=== PATIENT | male | born 1935 | race Caucasian/White ===

== ENCOUNTER 2017-02-18 07:37 | Day surgery (SDC) | payer OTHER ==
--- NOTE | 2017-02-15 09:47 | MH ---
cc: AMENA BIANCHI DATE OF ADMISSION: 02/18/2017 : 39 CHIEF COMPLAINT: The patient is coming for CT-guided lung biopsy of the left lung. HISTORY OF PRESENT ILLNESS: Mr. Lu is a 81-year-old male with history of coronary artery disease status post CABG, hyperlipidemia, history of peripheral artery disease. The patient had a chest x-ray done, which was abnormal. He was sent for CT scan of the chest done at [facility] (Formerly [facility]) on January 12, which shows that he has a 3 cm mass in the left upper lobe suspicious for malignancy. He has a pleural density and pleural thickening in the right apex. No significant lymphadenopathy. He has had no weight loss. No fever or chills. No hemoptysis. No cough or sputum production. PAST MEDICAL HISTORY: 1. COPD. 2. Hyperlipidemia. 3. History of coronary artery disease status post CABG. 4. History of peripheral artery disease. MEDICATIONS: He takes: 1. Lipitor 40 milligrams. 2. Aspirin 81 milligrams. 3. Tramadol as needed. ALLERGIES: NO KNOWN DRUG ALLERGIES. SOCIAL HISTORY: He has 60-year history of smoking one pack a day and continues to smoke fifteen to twenty cigarettes a day. Drinks occasionally. 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 FAMILY HISTORY: for a second time for twenty-six year. He has two children. He has three brothers and two sisters. His mother with cancer. His father of complications of diabetes and heart problems. REVIEW OF SYSTEMS: He denies any weight loss or fatigue. No fever or chills. No chest pain or hemoptysis. PHYSICAL EXAMINATION: GENERAL: An elderly male not in any acute distress. VITAL SIGNS: His blood pressure is 122/72, heart rate 72, respirations 16, oxygen saturation 96%. HEAD, EYES, EARS, NOSE, THROAT: Pupils are equal and reactive to light. Oral mucosa and nasal mucosa are normal. NECK: The neck is supple. JVP not raised. CHEST: Air entry equal bilaterally. No rhonchi. CARDIOVASCULAR: S1-S2 normal. ABDOMEN: Abdomen benign. EXTREMITIES: No edema. IMPRESSION: 1. A 3 cm left upper lobe mass concerning for malignancy. No significant lymphadenopathy. 2. COPD. 3. Coronary artery disease status post CABG. 4. Peripheral artery disease. 5. Nicotine use. PLAN: I discussed with the patient he will need CT-guided lung biopsy. The mass is not amenable with bronchoscopy. I explained to him the procedure and the complications including the complication of anesthesia, pneumothorax requiring chest tube, bleeding complications, injury to the blood vessels or lungs, nerves, arrhythmia, and the patient understands and wants to proceed with it. I will check his CBC and PT and PTT. I will also check his pulmonary function studies. I advised him to quit smoking. Follow up in two weeks. MD JIA Roland/HIGINIO /5:57 PM /9:42 AM MTDGlen
[2017-02-18] VITALS (8 sets, daily range): BP systolic 95–141; BP diastolic 57–84; PULSE 54–71; RESP 20; TEMP 97.6–97.9; O2SAT 92–95
[~2017-02-18] VITALS: Ht 177.8 cm; Wt 59.1 kg
[~2017-02-18 07:37] MED LIST: ASPI81 PO; METO25 PO; SIMV40 PO; TRAM50 PO
[2017-02-18] MEDS ORDERED: IODIXANOL 320 MG/ML 10 ML VIAL (for Rad CT) OTHER ONE (07:38)
[2017-02-18] MEDS ORDERED: ASPI81CH6 CHEW (07:56)
[2017-02-18] MEDS ORDERED: ATOR40TA16 PO (07:57)
[2017-02-18 08:17] LABS: AUTOMATED NEUTROPHIL # 4.2 TH/MM3 (1.8-7.7); BASOPHIL # 0.1 TH/MM3 (0-0.2); EOSINOPHIL # 0.3 TH/MM3 (0-0.4); EOSINOPHIL % 3.9 % (0.0-4.0); HEMATOCRIT 40.6 % (39.0-51.0); HEMO FLAGS DIFF FINAL; LYMPH % 36.5 % (9.0-44.0); MEAN CORPUSCULAR HEMOGLOBIN 31.1 PG (27.0-34.0); MEAN CORPUSCULAR HGB CONC 34.2 % (32.0-36.0); MONO % 7.6 % (0.0-8.0); PLATELET COUNT 213 TH/MM3 (150-450); RED BLOOD COUNT 4.46 MIL/MM3 (4.50-5.90); RED CELL DISTRIBUTION WIDTH 14.2 % (11.6-17.2); WHITE BLOOD COUNT 8.3 TH/MM3 (4.0-11.0)
[2017-02-18 08:27] LABS: APTT (PATIENT) 26.7 SEC (24.3-30.1); PROTHROMBIN TIME - PATIENT 10.6 SEC (9.8-11.6)
[2017-02-18] MEDS ORDERED: SODIUM CHLOR 0.9% 1000 ML IV SCH (08:30)
[2017-02-18] MEDS ORDERED: LIDOCAINE 1%/EPINEPHrine 1:100,000 SOLN 20 ML VIAL ONE (09:27)
[2017-02-18] MEDS ORDERED: MIDAZOLAM HCL 2 MG/2 ML VIAL ONE (09:37)
[2017-02-18] MEDS ORDERED: oxyCODONE/ACETAMINOPHEN 5 MG/325 MG TAB PO PRN (10:30)
--- NOTE | 2017-02-18 10:34 | PD.RAD ---
Post CT Procedure Prog Note Pre Procedure Diagnosis: (1) Mass of left lung Post Procedure Diagnosis: (1) Mass of left lung Procedure Date: Feb 18, 2017 Supervising Radiologist: Christiano Glass Anesthesia: Local, Analgesia, Conscious Sedation Plan of Activity Patient to Unit: ROPU Patient Condition: Good See PACS Report for procedural detail/treatment Biopsy Imaging Guidance: CT Side: Left Biopsy Procedure: Lung Specimen: Core Biopsy (x 2) Findings: 2 cores. Cytotech eval of first core deemed adequate. Second sample obtained and placed in formalin Christiano Glass MD Feb 18, 2017 10:34
--- NOTE | 2017-02-18 12:20 | RADRPT ---
EXAM DATE/TIME: 02/18/2017 11:57 [facility] COMPARISON: No previous studies available for comparison. INDICATIONS : Post left lung biopsy. Evaluate pneumothorax. MEDICAL HISTORY : Chronic obstructive pulmonary disease. Hypercholesterolemia. Hyperlipidemia. Skin cancer, ear. SURGICAL HISTORY : CABG. Appendectomy. ENCOUNTER: Subsequent ACUITY: 1 day PAIN SCORE: 0/10 LOCATION: Left chest FINDINGS: A single frontal expiratory view of the chest was performed. The lungs are symmetrically aerated and clear. Tiny left apical of pneumothorax. Mediastinal structures are in the midline. Status post me serenity sternotomy. The cardio-mediastinal contours and bronchopulmonary markings are unremarkable for an expiratory exam . Osseous structures are intact. CONCLUSION: Tiny left apical pneumothorax. Status post median sternotomy. Jose Luis Yo MD on February 18, 2017 at 12:16 Board Certified Radiologist. This report was verified electronically.
--- NOTE | 2017-02-18 14:04 | RADRPT ---
EXAM DATE/TIME: 02/18/2017 13:25 [facility] COMPARISON: CHEST EXPIRATION ONLY, February 18, 2017, 11:57. INDICATIONS : Post left lung biopsy. MEDICAL HISTORY : Chronic obstructive pulmonary disease. Hypercholesterolemia. Hyperlipidemia.Skin cancer, ear. SURGICAL HISTORY : CABG. Appendectomy. ENCOUNTER: Subsequent ACUITY: 1 day PAIN SCORE: 0/10 LOCATION: Left chest FINDINGS: Portable upright expiratory view of the chest demonstrates no pneumothorax following recent left lung biopsy. Otherwise, there has been no significant change. CONCLUSION: No pneumothorax is visualized. Eduin Jean MD on February 18, 2017 at 14:02 Board Certified Radiologist. This report was verified electronically.
--- NOTE | 2017-02-18 17:34 | RADRPT ---
EXAM DATE/TIME: 02/18/2017 09:51 [facility] COMPARISON: No previous studies available for comparison. INDICATIONS : Left lung mass. SEDATION TIME: 30 minutes BIOPSY SITE: Left lung. MEDICATION(S): 1.) 2 mg midazolam (Versed) IV 2.) 125 mcg fentanyl (Sublimaze) IV DEVICE(S): 1.) 18 gauge Remy blunt needle 2.) 20 gauge Temno core biopsy needle MEDICAL HISTORY : Chronic obstructive pulmonary disease. Cardiovascular disease. Peripheral vascular disease. SURGICAL HISTORY : Appendectomy. CABG ENCOUNTER: Initial ACUITY: 1 day PAIN SCORE: 0/10 LOCATION: Left chest A total of one core specimen(s) were obtained and sent to the laboratory for pathologic evaluation. PROCEDURE: 1. CT guided lung biopsy. Prior to the procedure informed consent was obtained. Any appropriate prior imaging studies were rev iewed. Using automated exposure control and adjustment of the mA and/or kV according to patient size, radiation dose was kept as low as reasonably achievable to obtain optimal diagnostic quality images. DICOM format image data is available electronically for review and comparison. The site was prepped in a sterile fashion. Full sterile technique was used, including cap, mask, liborio rile gloves and gown and a large sterile sheet. Hand hygiene and 2% chlorhexidine and/or betadine/al cohol prep was utilized per protocol for cutaneous antisepsis. The skin and subcutaneous tissues wer e infiltrated with local anesthetic solution. With CT guidance the previously identified target was localized. An 18 gauge Remy blunt needle was advanced to the lesion. A 20 gauge core was obtained and passed to the cytotech for evaluation. Samp le was deemed adequate for evaluation. A second biopsy was obtained and placed directly in formalin f or further laboratory evaluation. Adequate hemostasis was obtained with compression at the puncture site. Follow-up CT scan reveals no pneumothorax. Conscious sedation was performed with the prescribed dosages and duration as above in the presence of an independent trained radiology nurse to assist in the monitoring of the patient. EKG and oximetry remained stable throughout the procedure. The patient tolerated the procedure well and there were no complications. The patient was sent to Radiology Outpatient Unit in stable condition. CONCLUSION: Uncomplicated CT guided biopsy. Christiano Glass MD on February 18, 2017 at 17:31 Board Certified Radiologist. This report was verified electronically.
== END 2017-02-18 14:55 | disposition home or self-care (01) ==
LOC: HRAD 07:37 → HRIP 07:44 → HRAD 14:55
PROVIDERS: ATTEND Specialist
DX: R91.8 Other nonspecific abnormal finding of lung field (principal); J44.9 Chronic obstructive pulmonary disease, unspecified; I25.10 Atherosclerotic heart disease of native coronary artery without angina pectoris; E78.5 Hyperlipidemia, unspecified; I73.9 Peripheral vascular disease, unspecified; F17.200 Nicotine dependence, unspecified, uncomplicated; Z79.82 Long term (current) use of aspirin; Z95.1 Presence of aortocoronary bypass graft
CPT/HCPCS: 32405; 71010; 77012; 85025; 85610; 85730; 88305; 88333; 88360; J2250; J3010; J7030; Q9967

== ENCOUNTER 2017-04-08 05:17 | Inpatient (IN) | payer OTHER, MEDICARE ==
[~2017-04-08] VITALS: Ht 177.8 cm; Wt 58.5 kg
[~2017-04-08 05:17] MED LIST changes: -ASPI81 PO; +ASPI81CH6 CHEW; +ATOR40TA16 PO; -METO25 PO; -SIMV40 PO; -TRAM50 PO
[2017-04-08] MEDS ORDERED: LACTATED RINGER'S 1000 ML IV PRN (06:00)
[2017-04-08] MEDS ORDERED: POVIDONE IODINE 5% (ANTISEPSIS KIT) 4 APPLICATIONS EACH NARE PRN (06:00)
[2017-04-08] MEDS ORDERED: CHLORHEXIDINE GLUCONATE 2 % 1 PACK (2 CLOTHS) TOPICAL PRN (06:00)
[2017-04-08] MEDS ORDERED: SODIUM CHLORID 0.9% 500 ML IV PRN (06:00)
[2017-04-08] MEDS ORDERED: METOPROLOL TARTRATE 25 MG TAB PO PRN (06:00)
[2017-04-08] MEDS ORDERED: ACETAMINOPHEN 1000 MG/100 ML 100 ML IV ONE (06:08)
[2017-04-08] MEDS ORDERED: HYDROmorphone HCL PF 2 MG/ML VIAL ONE (06:08)
[2017-04-08] MEDS ORDERED: BUPIVACAINE HCL PF 0.5% 30 ML VIAL ONE ×3 (07:05→07:10)
[2017-04-08] MEDS ORDERED: ceFAZolin 2 GM PREMIX 50 ML ONE (07:05)
[2017-04-08] MEDS ORDERED: BUPIVACAINE LIPOSO PF 1.3% INJ 20 ML, DEXAMETHASONE INJ 4 MG, MORPHINE INJ 8 MG in SODI... IRRIGATION SCH (08:45)
--- NOTE | 2017-04-08 09:19 | PD.CAR.PN ---
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
--- NOTE | 2017-04-08 09:23 | HHI.FF ---
Face to Face Verification Diagnosis: (1) Hx of CABG (2) COPD (chronic obstructive pulmonary disease) (3) CAD (coronary artery disease) (4) left VATS lobectomy (5) Mass of left lung Home Health Nursing Order: Medication education-adverse effect Wound care and dressing changes Nursing assessment with vital signs Instructions: Thoracic Surgery patients Mandatory frequency Assess and evaluation, 2-3 x a week for one week Initial visit 1. Review post chest surgery instructions chest precautions, Activity, Elastic hose, Incision care, Driving, Incentive spirometry, Smoking, [place] , Work and other) 2. Need Betadine to paint incision 3. Medication reconciliation 4. Importance of follow up care/ check on appointments 5. Make calendar record temperature daily 6. When to call Home nurse, review instructions, phone list 7. Incentive Spirometry, demonstration Visit 1- Begin discharge instruction for patient family and/ or caregiver using teach back method- 1. Signs and symptoms of infection 2. Disease characteristics 3. Medicines and side effects 4. Foods and nutrition/ appetite 5. Infection control/ hand washing/ hygiene Visit 2- Continue teaching 1. Discharge instructions- include additional information on smoking cessation , Visit 3- Continue teaching- 1. Cough and deep breathing, incision monitoring. Incentive spirometry Q1 hr x 10, while awake, also use acapella device hourly whole awake chest wall Precautions: NO pushing or pulling, ( pt must use chest pillow to support chest with all activities and with coughing Daily incision care: ok to shower daily ( 48hrs after chest tube removed ) , no tub bath. Wash all incisions with liquid dial soap, clean wash cloth to each site, rinse and pat dry. Observe for any signs of infection, such as drainage which is dark yellow, sims, green or foul smelling. Immediately report to the surgeon any drainage from the chest incision, or legs, and for any abnormal drainage from the chest tube sites. Notify surgeon if any temp > 101.5 degrees F. When specialty dressing removed/ or if you do not have one, continue to shower daily as above, then rinse and pat incision dry and paint with betadine daily x 5 days. Allow steri strips to fall off if you have any. Avoid lotions, creams, salves, oils, etc. for the first month For Dr. Funes patients , please obtain PA & Lat CXR in 2 weeks, results to Dr. 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 Madison & Dr. Funes), After Hours / Nights (5pm -8am) Weekends and Holidays Please call [facility] Cardiac Intermediate Care Unit (CIC) Charge Nurse I have seen patient Martin Lu on 04/08/17. My clinical findings support the need for the requested home health care services because: Patient has SOB I certify that my clinical findings support that this patient is homebound because: Post-op weakness Jerilyn Smith Apr 08, 2017 09:22
[2017-04-08] MEDS ORDERED: NALOXONE HCL 0.4 MG/ML AMP IV PUSH PRN (10:45)
[2017-04-08] MEDS ORDERED: POTASSIUM CHLOR 20 MEQ PREMIX 100 ML IV PRN (10:45)
[2017-04-08] MEDS ORDERED: ONDANSETRON HCL 4 MG/2 ML VIAL IV PUSH PRN (10:45)
[2017-04-08] MEDS ORDERED: MAGNESIUM HYDROXIDE SUSP 30 ML CUP PO PRN (10:45)
[2017-04-08] MEDS ORDERED: ACETAMINOPHEN 325 MG TAB PO PRN (10:45)
[2017-04-08] MEDS ORDERED: SODIUM CHLORIDE 0.9% FLUSH 10 ML FLUSH IV FLUSH PRN (10:45)
[2017-04-08] MEDS ORDERED: RESP: ALBUTEROL 2.5 MG/3 ML NEB (PRN) NEB (10:45)
[2017-04-08] MEDS ORDERED: Post-op Orders (for Pharmacy) OTHER ONE (10:45)
[2017-04-08] MEDS ORDERED: DO NOT ADM ANY ANTICOAGULANT DRUGS PRN (11:09)
--- NOTE | 2017-04-08 11:10 | PD.OP ---
cc: Maurilio Lopez MD; Blanca Funes MD Operative Report Date of Surgery: Apr 08, 2017 Preoperative Diagnosis: (1) COPD (chronic obstructive pulmonary disease) (2) Lung cancer Postoperative Diagnosis: same Procedure: Left thoracoscopic assisted excisional biopsy of left upper lobe tumor Lysis of adhesions Anesthesia: Dr. Han Surgeon: Blanca Funes Transfer Worker(s): JUSTIN Walsh Operation and Findings: After adequate general anesthesia the patient was placed in the right lateral decubitus position and the left chest was prepped and draped in usual manner. A small lateral thoracotomy incision was performed and electrocautery was used to obtain hemostasis and carry the dissection down through the latissimus dorsi. The serratus anterior was retracted anteriorly and the 5th intercostal space was entered under direct vision and selective single lung ventilation. The 5th rib was shingled posteriorly. Exploration of the left hemithorax was significant for dense adhesions from the patient's prior CABG involving the left hemithorax and the major fissure. A small anterior port incision was made at the ~6th intercostal space and a camera was introduced to aid visualization and exposure. After mobilizing the left upper lobe, a large mass was encountered grossly invading the chest wall just posterior to the apex. Clips were used to tejas the area of concern. This nodule was excised using several Endo-TOM endoscopic staple loads. The mass was submitted to pathology for permanent section. A 32 Icelandic chest tube was then placed through the port incision anteriorly and this was secured with 0 silk suture. Exparel was used as an intercostal block for postop analgesia. . The lung was ventilated and the staple line was treated with Evicel to minimize air leaks. . The wound was closed in layers approximately in the ribs initially with a 2. Vicryl figure-of- eight suture. The latissimus dorsi was reapproximated using a running 0 Vicryl suture. The subcutaneous tissues approximated running 2-0 Vicryl suture and the skin was approximated using running 4-0 Monocryl subcuticular stitch. All sponges history counts were correct at the close the procedure and the patient was transferred to the PACU for recovery purposes. Blanca Funes MD Apr 08, 2017 11:10
[2017-04-08] MEDS ORDERED: MIDAZOLAM HCL 2 MG/2 ML VIAL ONE (11:14)
--- NOTE | 2017-04-08 11:49 | RADRPT ---
EXAM DATE/TIME: 04/08/2017 11:27 [facility] COMPARISON: CHEST EXPIRATION ONLY, February 18, 2017, 13:25. INDICATIONS : Post thoracotomy. MEDICAL HISTORY : Chronic obstructive pulmonary disease. Cardiovascular disease. Peripheral vascular disease. SURGICAL HISTORY : Appendectomy. CABG. ENCOUNTER: Subsequent ACUITY: 1 day PAIN SCORE: 0/10 LOCATION: Bilateral chest FINDINGS: 2 AP views of the chest. Median sternotomy wires in place. Left-sided chest tube in place. Patchy [place] in the left upper lung zone. Small amount of gas is seen in the soft tissues of the left chest. There is a left apical pneumothorax measuring a maximum of 4 cm in superior-inferior dimension. Right lung is clear. No evidence of pleural effusion. CONCLUSION: Post surgical findings left upper lung. Left apical pneumothorax is seen. Left sided chest tubes in p lace at the left apex. Brayan Leonardo MD on April 08, 2017 at 11:44 Board Certified Radiologist. This report was verified electronically.
[2017-04-08] MEDS ORDERED: ROCURONIUM INJ 50 MG/5 ML SYRINGE IV PUSH ONE (12:00)
[2017-04-08] MEDS ORDERED: ePHEDrine/NS 25 MG/5 ML SYRINGE IV ONE (12:00)
[2017-04-08] MEDS ORDERED: PROPOFOL 200 MG/20 ML AMP IV ONE (12:00)
[2017-04-08] MEDS ORDERED: PHENYLEPH/NS 1000 MCG/10 ML SYR IV ONE (12:00)
[2017-04-08] MEDS ORDERED: NEOSTIGMINE 5 MG/5 ML SYRINGE IV PUSH ONE (12:00)
[2017-04-08] MEDS ORDERED: ONDANSETRON HCL 4 MG/2 ML VIAL IV ONE (12:00)
[2017-04-08] MEDS ORDERED: GLYCOPYRROLATE 1 MG/5 ML SYRINGE IV PUSH ONE (12:00)
[2017-04-08] MEDS ORDERED: DEXAMETHASONE SOD PHOS 4 MG/ML VIAL IV ONE (12:00)
[2017-04-08] MEDS ORDERED: LIDOCAINE HCL 1% PF 5 ML SYRINGE OTHER ONE (12:00)
[2017-04-08] MEDS: MORPHINE SULFATE 30 MG/30 ML PCA IV SCH (12:23)
[2017-04-08 20:00] VITALS: BP 111/60; PULSE 76; RESP 14; TEMP 98.1; O2SAT 96
[2017-04-08] MEDS: ATORVASTATIN 40 MG TAB PO SCH (20:43)
[2017-04-08] MEDS: PANTOPRAZOLE SOD 40 MG DELAYED RELEASE TAB PO SCH (20:43)
[2017-04-08] MEDS: SODIUM CHLORIDE 0.9% FLUSH 10 ML FLUSH IV FLUSH SCH (20:44)
[2017-04-08 21:00] VITALS: PULSE 68
[2017-04-08] MEDS ORDERED: DOCUSATE CALCIUM 240 MG CAP PO SCH (21:00)
[2017-04-08 22:00] VITALS: PULSE 58
[2017-04-08] MEDS: PCA - TOTAL MG MORPHINE DELIVERED PER SHIFT SCH (22:00)
[2017-04-08 23:00] VITALS: PULSE 64
[2017-04-09] VITALS (24 sets, daily range): BP systolic 93–127; BP diastolic 56–63; PULSE 58–93; RESP 14–20; TEMP 97.8–98.6; O2SAT 94–99
--- NOTE | 2017-04-09 05:32 | RADRPT ---
EXAM DATE/TIME: 04/09/2017 04:16 [facility] COMPARISON: CHEST SINGLE AP, April 08, 2017, 11:27. INDICATIONS : Evaluate for pneumothorax Post Thoracotomy MEDICAL HISTORY : Chronic obstructive pulmonary disease. Cardiovascular disease. Peripheral vascular disease. SURGICAL HISTORY : Appendectomy. CABG. ENCOUNTER: Subsequent ACUITY: 2 days PAIN SCORE: 7/10 LOCATION: Bilateral chest FINDINGS: The patient is status post sternotomy. There is a left-sided chest tube in place. Lung philipp are se en at the superior medial left lung. A pneumothorax is not seen. There is some patchy density in the left upper lung. The right lung is clear. The heart size is normal. There is subcutaneous emphysema seen at the left lateral chest and left neck. CONCLUSION: A pneumothorax is not seen. There is a left chest tube in place. There is postoperative change in the left upper lung. Eduin Back MD on April 09, 2017 at 5:28 Board Certified Radiologist. This report was verified electronically.
[2017-04-09] MEDS: PCA - TOTAL MG MORPHINE DELIVERED PER SHIFT SCH ×3 (06:00→22:00)
[2017-04-09 06:24] LABS: AUTOMATED NEUTROPHIL # 8.2 TH/MM3 (1.8-7.7); BASOPHIL % 0.2 % (0.0-2.0); HEMATOCRIT 30.6 % (39.0-51.0); HEMOGLOBIN 10.6 GM/DL (13.0-17.0); LYMPH % 12.5 % (9.0-44.0); LYMPHOCYTE # 1.3 TH/MM3 (1.0-4.8); MEAN CELL VOLUME 89.9 FL (80.0-100.0); MEAN CORPUSCULAR HEMOGLOBIN 31.1 PG (27.0-34.0); MEAN CORPUSCULAR HGB CONC 34.6 % (32.0-36.0); MEAN PLATELET VOLUME 7.1 FL (7.0-11.0); MONO % 8.2 % (0.0-8.0); MONOCYTE # 0.8 TH/MM3 (0-0.9); NEUT % 79.1 % (16.0-70.0); PLATELET COUNT 192 TH/MM3 (150-450); WHITE BLOOD COUNT 10.3 TH/MM3 (4.0-11.0)
[2017-04-09 06:31] LABS: BICARBONATE 26.6 MEQ/L (21.0-32.0); CALCIUM 8.2 MG/DL (8.5-10.1); CREATININE 1.23 MG/DL (0.60-1.30)
[2017-04-09] MEDS: SODIUM CHLORIDE 0.9% FLUSH 10 ML FLUSH IV FLUSH SCH ×2 (08:55→22:14)
[2017-04-09] MEDS: ASPIRIN 81 MG CHEW TAB CHEW SCH (08:55)
[2017-04-09] MEDS ORDERED: BISACODYL 10 MG SUPP RECTAL PRN (10:00)
[2017-04-09] MEDS ORDERED: SOD PHOSPHATE/SOD BIPHOSPHATE (ADULT) ENEMA 133ML PR PRN (10:00)
--- NOTE | 2017-04-09 10:03 | PD.CAR.PN ---
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 incision intact left posteo lateral chest wall / wll approximated HEAD: Normocephalic. EYES: No scleral icterus. No injection or drainage. NECK: Supple, trachea midline. No JVD or lymphadenopathy. CARDIOVASCULAR: Regular rate and rhythm without murmurs, gallops, or rubs. RESPIRATORY: Breath sounds equal bilaterally. No accessory muscle use. chest tube in place + air leak , drained 500cc/ 12 hrs GASTROINTESTINAL: Abdomen soft, non-tender, nondistended. MUSCULOSKELETAL: No cyanosis, or edema. BACK: Nontender without obvious deformity. No CVA tenderness. Vital Signs Date Time Temp Pulse Resp B/P (MAP) Pulse Ox O2 Delivery O2 Flow Rate FiO2 04/09/17 09:00 75 04/09/17 08:51 95 21 04/09/17 08:00 69 04/09/17 07:23 98.1 67 20 104/60 (75) 97 04/09/17 07:00 67 04/09/17 06:00 16 04/09/17 03:00 98.2 78 16 93/57 (69) 96 04/09/17 00:00 98.2 61 14 106/60 (75) 94 04/09/17 00:00 68 04/08/17 23:00 64 04/08/17 22:00 58 04/08/17 22:00 14 04/08/17 21:00 68 04/08/17 20:00 98.1 76 14 111/60 (77) 96 04/08/17 19:00 71 16 108/64 (79) 95 Room Air 04/08/17 18:00 68 16 106/59 (75) 95 Room Air 04/08/17 17:00 62 16 111/57 (75) 98 04/08/17 16:00 60 16 113/59 (77) 99 Nasal Cannula 2 04/08/17 15:00 62 16 107/57 (74) 97 Nasal Cannula 3 04/08/17 14:00 68 16 108/62 (77) 98 Nasal Cannula 3 04/08/17 13:30 64 16 102/59 (73) 98 Nasal Cannula 3 04/08/17 13:00 58 16 106/57 (73) 98 Nasal Cannula 3 04/08/17 12:30 60 16 111/57 (75) 99 Nasal Cannula 3 04/08/17 12:23 16 04/08/17 12:15 58 16 112/56 (74) 99 Nasal Cannula 3 04/08/17 12:00 97.4 60 16 112/58 (76) 99 Nasal Cannula 3 04/08/17 11:45 58 16 114/59 (77) 100 Nasal Cannula 3 04/08/17 11:30 56 16 116/57 (76) 100 Nasal Cannula 3 04/08/17 11:15 60 16 118/58 (78) 100 Nasal Cannula 3 04/08/17 11:09 95.7 66 16 127/63 (84) 99 Nasal Cannula 3 Labs: Laboratory Tests Test 04/09/17 04:26 White Blood Count 10.3 TH/MM3 (4.0-11.0) Red Blood Count 3.40 MIL/MM3 (4.50-5.90) Hemoglobin 10.6 GM/DL (13.0-17.0) Hematocrit 30.6 % (39.0-51.0) Mean Corpuscular Volume 89.9 FL (80.0-100.0) Mean Corpuscular Hemoglobin 31.1 PG (27.0-34.0) Mean Corpuscular Hemoglobin Concent 34.6 % (32.0-36.0) Red Cell Distribution Width 14.0 % (11.6-17.2) Platelet Count 192 TH/MM3 (150-450) Mean Platelet Volume 7.1 FL (7.0-11.0) Neutrophils (%) (Auto) 79.1 % (16.0-70.0) Lymphocytes (%) (Auto) 12.5 % (9.0-44.0) Monocytes (%) (Auto) 8.2 % (0.0-8.0) Eosinophils (%) (Auto) 0.0 % (0.0-4.0) Basophils (%) (Auto) 0.2 % (0.0-2.0) Neutrophils # (Auto) 8.2 TH/MM3 (1.8-7.7) Lymphocytes # (Auto) 1.3 TH/MM3 (1.0-4.8) Monocytes # (Auto) 0.8 TH/MM3 (0-0.9) Eosinophils # (Auto) 0.0 TH/MM3 (0-0.4) Basophils # (Auto) 0.0 TH/MM3 (0-0.2) CBC Comment DIFF FINAL Differential Comment Blood Urea Nitrogen 17 MG/DL (7-18) Creatinine 1.23 MG/DL (0.60-1.30) Random Glucose 131 MG/DL (74-106) Calcium Level 8.2 MG/DL (8.5-10.1) Sodium Level 138 MEQ/L (136-145) Potassium Level 4.4 MEQ/L (3.5-5.1) Chloride Level 104 MEQ/L (98-107) Carbon Dioxide Level 26.6 MEQ/L (21.0-32.0) Anion Gap 7 MEQ/L (5-15) Estimat Glomerular Filtration Rate 57 ML/MIN (>89) Result Diagram: 04/09/1742504/09/17425 Telemetry: NSR (1) COPD (chronic obstructive pulmonary disease) Plan: on nebs, IS ezpap acapella (2) CAD (coronary artery disease) Plan: on ASA, statin (3) Mass of left lung (4) left VATS lobectomy Plan: keep chest tube to wall suction (5) Lung cancer Plan: path pending (6) Hx of CABG Jerilyn Smith Apr 09, 2017 10:03
[2017-04-09] MEDS: DOCUSATE SODIUM 100 MG CAP PO SCH ×2 (10:18→22:15)
[2017-04-09] MEDS: POLYETHYLENE GLYCOL 17 GM PKG PO SCH (10:18)
[2017-04-09] MEDS: PANTOPRAZOLE SOD 40 MG DELAYED RELEASE TAB PO SCH (22:15)
[2017-04-09] MEDS: ATORVASTATIN 40 MG TAB PO SCH (22:15)
[2017-04-10] VITALS (24 sets, daily range): BP systolic 102–139; BP diastolic 57–70; PULSE 66–86; RESP 12–20; TEMP 97.4–99.9; O2SAT 94–97
--- NOTE | 2017-04-10 04:40 | RADRPT ---
EXAM DATE/TIME: 04/10/2017 03:49 [facility] COMPARISON: CHEST EXPIRATION ONLY, February 18, 2017, 13:25. CHEST SINGLE AP, April 08, 2017, 11:27. CHEST SI NGLE AP, April 09, 2017, 4:16. INDICATIONS : Shortness of breath, possible pneumothorax. MEDICAL HISTORY : Chronic obstructive pulmonary disease. Cardiovascular disease. Peripheral vascular disease. SURGICAL HISTORY : Appendectomy. CABG. ENCOUNTER: Subsequent ACUITY: 3 days PAIN SCORE: 3/10 LOCATION: Bilateral chest FINDINGS: There is a left chest tube. Lung philipp in the superior-medial left chest. There is pleural fluid ov er the left apex. There appears to be a mild pneumothorax on the left measuring up to 1.3 cm laterall y. There is suspected postoperative change throughout the left upper medial chest. The right lung is clear. CONCLUSION: Status post partial left pneumonectomy with lung philipp seen in the left upper lung. There is postop erative change in this region. There is a left chest tube and a suspected mild left pneumothorax. Eduin Back MD on April 10, 2017 at 4:32 Board Certified Radiologist. This report was verified electronically.
[2017-04-10 05:48] LABS: HEMATOCRIT 28.8 % (39.0-51.0); MEAN CELL VOLUME 89.5 FL (80.0-100.0); MEAN CORPUSCULAR HEMOGLOBIN 30.9 PG (27.0-34.0); MEAN CORPUSCULAR HGB CONC 34.5 % (32.0-36.0); MEAN PLATELET VOLUME 6.9 FL (7.0-11.0); PLATELET COUNT 178 TH/MM3 (150-450); RED BLOOD COUNT 3.22 MIL/MM3 (4.50-5.90); RED CELL DISTRIBUTION WIDTH 13.9 % (11.6-17.2); WHITE BLOOD COUNT 9.9 TH/MM3 (4.0-11.0)
[2017-04-10] MEDS: PCA - TOTAL MG MORPHINE DELIVERED PER SHIFT SCH ×3 (06:00→22:00)
[2017-04-10] MEDS: POLYETHYLENE GLYCOL 17 GM PKG PO SCH (09:03)
[2017-04-10] MEDS: DOCUSATE SODIUM 100 MG CAP PO SCH ×2 (09:03→21:00)
[2017-04-10] MEDS: ASPIRIN 81 MG CHEW TAB CHEW SCH (09:03)
[2017-04-10] MEDS: SODIUM CHLORIDE 0.9% FLUSH 10 ML FLUSH IV FLUSH SCH ×2 (09:04→21:00)
--- NOTE | 2017-04-10 10:42 | PD.CAR.PN ---
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 04/10/17 small air leak resting comfortably currently Objective: Vital Signs Date Time Temp Pulse Resp B/P (MAP) Pulse Ox O2 Delivery O2 Flow Rate FiO2 04/10/17 09:00 68 04/10/17 08:00 78 04/10/17 07:00 97.4 86 20 102/57 (72) 96 04/10/17 07:00 77 04/10/17 06:00 70 04/10/17 05:00 70 04/10/17 04:00 70 04/10/17 03:00 71 04/10/17 03:00 98.7 78 18 116/62 (80) 95 04/10/17 02:00 74 04/10/17 01:00 74 04/10/17 00:00 71 04/09/17 23:00 98.6 81 18 115/57 (76) 94 04/09/17 23:00 70 04/09/17 22:00 16 04/09/17 22:00 70 04/09/17 21:00 64 04/09/17 20:00 67 04/09/17 20:00 98.6 80 18 127/63 (84) 95 04/09/17 19:48 94 21 04/09/17 19:00 66 04/09/17 18:00 79 04/09/17 17:00 93 04/09/17 16:00 70 04/09/17 15:30 97.9 70 20 103/59 (74) 99 04/09/17 15:00 75 04/09/17 14:00 58 04/09/17 14:00 16 04/09/17 13:00 60 04/09/17 12:00 68 04/09/17 11:42 97.8 76 20 104/56 (72) 97 04/09/17 11:00 67 Labs: Laboratory Tests Test 04/10/17 05:18 White Blood Count 9.9 TH/MM3 (4.0-11.0) Red Blood Count 3.22 MIL/MM3 (4.50-5.90) Hemoglobin 10.0 GM/DL (13.0-17.0) Hematocrit 28.8 % (39.0-51.0) Mean Corpuscular Volume 89.5 FL (80.0-100.0) Mean Corpuscular Hemoglobin 30.9 PG (27.0-34.0) Mean Corpuscular Hemoglobin Concent 34.5 % (32.0-36.0) Red Cell Distribution Width 13.9 % (11.6-17.2) Platelet Count 178 TH/MM3 (150-450) Mean Platelet Volume 6.9 FL (7.0-11.0) Result Diagram: 04/10/17 0518 04/09/17 0426 Imaging: Last Impressions Chest X-Ray 04/10/17 0600 Signed Impressions: Service Date/Time: Monday, April 10, 2017 03:49 - CONCLUSION: Status post partial left pneumonectomy with lung philipp seen in the left upper lung. There is postoperative change in this region. There is a left chest tube and a suspected mild left pneumothorax. Eduin Back MD Cardiovascular: RRR Telemetry: NSR Pulmonary: CTA GI/: NABS, NT Incision: dry and intact CT: 180ml/12hrs small air leak Plan: continue chest tube to suction CXR in AM Encourage ambulation, up to chair Encourage PO intake PATH reviewed - path stage T3, N0, M0 - stage 2b Will consult oncology for consideration of adjuvant tx in the near future (1) COPD (chronic obstructive pulmonary disease) Plan: on nebs, IS ezpap acapella (2) CAD (coronary artery disease) Plan: on ASA, statin (3) Mass of left lung (4) left VATS lobectomy Plan: keep chest tube to wall suction (5) Lung cancer Plan: path pending (6) Hx of CABG Blanca Funes MD Apr 10, 2017 10:42
[2017-04-10] MEDS: PANTOPRAZOLE SOD 40 MG DELAYED RELEASE TAB PO SCH (21:00)
[2017-04-10] MEDS: ATORVASTATIN 40 MG TAB PO SCH (21:00)
[2017-04-11] VITALS (24 sets, daily range): BP systolic 99–117; BP diastolic 59–71; PULSE 62–87; RESP 12–20; TEMP 98–99.1; O2SAT 95–97
--- NOTE | 2017-04-11 02:50 | RADRPT ---
EXAM DATE/TIME: 04/11/2017 02:19 [facility] COMPARISON: CHEST SINGLE AP, April 10, 2017, 3:49. INDICATIONS : Shortness of breath, possible pneumothorax. MEDICAL HISTORY : Chronic obstructive pulmonary disease. Cardiovascular disease. Peripheral vascular disease. SURGICAL HISTORY : Appendectomy. CABG. ENCOUNTER: Subsequent ACUITY: 4 - 6 days PAIN SCORE: 3/10 LOCATION: Bilateral chest FINDINGS: There is a left-sided chest tube. A pneumothorax is not seen. There is subcutaneous air seen at the l ower lateral left chest. There are lung philipp at the superior medial left upper lung. There some pl eural thickening over the lung left apex. There is increased density of the left upper lung. The righ t lung is clear. The patient is status post sternotomy. Heart size is normal. The aorta is calcified. CONCLUSION: Postoperative change the left upper lung. No pneumothorax is seen. Eduin Back MD on April 11, 2017 at 2:47 Board Certified Radiologist. This report was verified electronically.
[2017-04-11] MEDS: PCA - TOTAL MG MORPHINE DELIVERED PER SHIFT SCH ×3 (06:00→21:56)
[2017-04-11] MEDS: MORPHINE SULFATE 30 MG/30 ML PCA IV SCH (08:00)
[2017-04-11] MEDS: POLYETHYLENE GLYCOL 17 GM PKG PO SCH (09:00)
[2017-04-11] MEDS: ASPIRIN 81 MG CHEW TAB CHEW SCH (09:47)
[2017-04-11] MEDS: SODIUM CHLORIDE 0.9% FLUSH 10 ML FLUSH IV FLUSH SCH ×2 (09:47→20:54)
[2017-04-11] MEDS: DOCUSATE SODIUM 100 MG CAP PO SCH ×2 (09:47→20:54)
--- NOTE | 2017-04-11 09:53 | PD.CAR.PN ---
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 GI motility meds added 04/10/17 small air leak resting comfortably currently 04/11/17 c/o incisional pain small air leak Objective: Vital Signs Date Time Temp Pulse Resp B/P (MAP) Pulse Ox O2 Delivery O2 Flow Rate FiO2 04/11/17 09:00 80 04/11/17 08:05 18 04/11/17 08:00 98.1 77 20 102/71 (81) 95 04/11/17 08:00 76 04/11/17 08:00 20 04/11/17 07:00 62 04/11/17 06:00 78 04/11/17 06:00 16 04/11/17 05:00 70 04/11/17 04:00 74 04/11/17 03:00 65 04/11/17 03:00 98.6 65 12 105/68 (80) 95 04/11/17 02:00 66 04/11/17 01:00 66 04/11/17 00:00 70 04/10/17 23:00 99.9 74 12 110/62 (78) 94 04/10/17 23:00 74 04/10/17 22:00 72 04/10/17 22:00 12 04/10/17 21:00 70 04/10/17 20:00 72 04/10/17 19:00 67 04/10/17 19:00 99.2 67 12 128/70 (89) 95 04/10/17 18:00 76 04/10/17 17:00 80 04/10/17 16:00 69 04/10/17 15:00 71 04/10/17 15:00 97.6 84 18 105/62 (76) 97 04/10/17 14:40 18 04/10/17 14:00 82 04/10/17 13:00 77 04/10/17 12:00 66 04/10/17 11:00 66 04/10/17 11:00 83 18 139/67 (91) 95 04/10/17 10:00 66 Result Diagram: 04/10/17 0518 04/09/17 0426 Pulmonary: CTA GI/: NABS Incision: dry and intact CT: 70ml/12 hrs, small air leak Plan: chest tube to water seal CXR in AM (1) COPD (chronic obstructive pulmonary disease) Plan: on nebs, IS ezpap acapella (2) CAD (coronary artery disease) Plan: on ASA, statin (3) Mass of left lung (4) left VATS lobectomy Plan: keep chest tube to wall suction (5) Lung cancer Plan: path pending (6) Hx of CABG Blanca Funes MD Apr 11, 2017 09:53
[2017-04-11] MEDS: PANTOPRAZOLE SOD 40 MG DELAYED RELEASE TAB PO SCH (20:54)
[2017-04-11] MEDS: ATORVASTATIN 40 MG TAB PO SCH (20:54)
[2017-04-12] VITALS (21 sets, daily range): BP systolic 110–134; BP diastolic 57–72; PULSE 64–90; RESP 14–20; TEMP 97.7–98.8; O2SAT 94–96
--- NOTE | 2017-04-12 04:51 | RADRPT ---
EXAM DATE/TIME: 04/12/2017 03:17 [facility] COMPARISON: CHEST SINGLE AP, April 11, 2017, 2:19. INDICATIONS : Shortness of breath, possible pulmonary disease. MEDICAL HISTORY : Chronic obstructive pulmonary disease. Cardiovascular disease. Peripheral vascular disease. SURGICAL HISTORY : Appendectomy. CABG. ENCOUNTER: Subsequent ACUITY: 1 week PAIN SCORE: 3/10 LOCATION: Bilateral chest FINDINGS: Left chest tube is present with small left pneumothorax. Subcutaneous air left chest wall. Mild basil ar atelectasis or scarring. Right lung otherwise clear. Postop median sternotomy and CABG. CONCLUSION: 1. Postoperative partial left lung resection with surgical philipp superiorly. Left chest tube with a small left pneumothorax. Erasto Balderas MD on April 12, 2017 at 4:46 Board Certified Radiologist. This report was verified electronically.
[2017-04-12] MEDS: PCA - TOTAL MG MORPHINE DELIVERED PER SHIFT SCH (05:35)
[2017-04-12] MEDS: POLYETHYLENE GLYCOL 17 GM PKG PO SCH (09:00)
[2017-04-12] MEDS: SODIUM CHLORIDE 0.9% FLUSH 10 ML FLUSH IV FLUSH SCH ×2 (09:00→19:58)
[2017-04-12] MEDS: ASPIRIN 81 MG CHEW TAB CHEW SCH (09:33)
[2017-04-12] MEDS: DOCUSATE SODIUM 100 MG CAP PO SCH ×2 (09:33→19:57)
[2017-04-12] MEDS ORDERED: ACETAMINOPHEN/HYDROcodone 325 MG/5 MG TAB PO PRN ×2 (11:15)
--- NOTE | 2017-04-12 11:55 | PD.CAR.PN ---
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 incision intact left postero lateral chest wall HEAD: Normocephalic. EYES: No scleral icterus. No injection or drainage. NECK: Supple, trachea midline. No JVD or lymphadenopathy. CARDIOVASCULAR: Regular rate and rhythm without murmurs, gallops, or rubs. RESPIRATORY: Breath sounds equal bilaterally. No accessory muscle use. diminished in bases / chest tube to water seal, no air leak GASTROINTESTINAL: Abdomen soft, non-tender, nondistended. MUSCULOSKELETAL: No cyanosis, or edema. BACK: Nontender without obvious deformity. No CVA tenderness. Vital Signs Date Time Temp Pulse Resp B/P (MAP) Pulse Ox O2 Delivery O2 Flow Rate FiO2 04/12/17 11:00 68 04/12/17 11:00 98.8 73 14 111/61 (78) 95 04/12/17 10:00 77 04/12/17 09:00 76 04/12/17 08:00 98.8 78 20 134/72 (92) 94 04/12/17 08:00 66 04/12/17 07:00 90 04/12/17 06:00 69 04/12/17 05:35 16 04/12/17 05:00 70 04/12/17 04:00 68 04/12/17 03:00 97.7 75 16 115/64 (81) 96 04/12/17 03:00 67 1/29/18 02:00 72 04/12/17 01:00 68 04/12/17 00:00 70 04/11/17 23:00 77 04/11/17 23:00 99.1 73 18 117/62 (80) 97 04/11/17 22:00 70 04/11/17 21:56 18 04/11/17 21:00 86 04/11/17 20:00 85 04/11/17 19:00 78 04/11/17 19:00 98.2 87 16 116/65 (82) 96 04/11/17 18:01 80 04/11/17 17:10 86 04/11/17 16:09 76 04/11/17 15:17 98.0 70 18 99/59 (72) 96 04/11/17 15:17 71 04/11/17 14:00 63 04/11/17 13:14 18 04/11/17 13:05 63 04/11/17 12:01 74 Result Diagram: 04/10/17 0518 04/09/17 0426 (1) COPD (chronic obstructive pulmonary disease) Plan: on nebs, IS ezpap acapella (2) CAD (coronary artery disease) Plan: on ASA, statin (3) Mass of left lung (4) left VATS lobectomy Plan: keep chest tube to water seal f/u CXR in am may need to be dc with with pneumostat (5) Lung cancer Plan: path pleural invasion 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
[2017-04-12] MEDS: PANTOPRAZOLE SOD 40 MG DELAYED RELEASE TAB PO SCH (19:58)
[2017-04-12] MEDS: ATORVASTATIN 40 MG TAB PO SCH (19:58)
[2017-04-13] VITALS (16 sets, daily range): BP systolic 113–132; BP diastolic 53–67; PULSE 63–87; RESP 17–18; TEMP 97.8–98.6; O2SAT 93–97
--- NOTE | 2017-04-13 05:16 | RADRPT ---
EXAM DATE/TIME: 04/13/2017 04:23 [facility] COMPARISON: CHEST SINGLE AP, April 12, 2017, 3:17. INDICATIONS : Short of breath. MEDICAL HISTORY : Chronic obstructive pulmonary disease. Cardiovascular disease. Peripheral vascular disease. SURGICAL HISTORY : Appendectomy. CABG. ENCOUNTER: Subsequent ACUITY: 1 week PAIN SCORE: 0/10 LOCATION: Bilateral chest FINDINGS: A single view of the chest demonstrates postoperative median sternotomy. Left chest tube with tiny le ft pneumothorax. Subcutaneous air left chest wall. Scattered airspace disease in the left lung unchan ged. Left fifth rib fracture stable. CONCLUSION: 1. Chest tube with tiny left pneumothorax. Stable mild airspace disease on the left Erasto Balderas MD on April 13, 2017 at 5:13 Board Certified Radiologist. This report was verified electronically.
--- NOTE | 2017-04-13 06:52 | MB ---
cc: XIOMARA FRIEND M.D., G. FREDERICK M.D. MEYERS, CARY ANEJA, ARJUN DATE OF CONSULTATION 04/12/2017 REASON FOR CONSULTATION Consult requested by Dr. Funes for evaluation of recently diagnosed non-small cell lung cancer. HISTORY OF PRESENT ILLNESS Martin is a 81-year-old male. He has a history of heavy cigarette smoking. He stated that he used to smoke cigarettes one pack a day for 65 years and quit about a month ago. He also has a history of coronary artery disease status post coronary artery bypass surgery, hypercholesterolemia, peripheral vascular disease and COPD. He went to Dr. Gardner last December for a routine visit. Given his history of heavy cigarette smoking, a chest x-ray was ordered which came back abnormal in the left upper lobe. On January 12, he had a CT scan of the chest which revealed a 3 cm left upper lobe lung mass. The patient was referred to burning plant operator Dr. Lopez. Dr. Lopez had recommended CT-guided core needle biopsy of the left upper lobe lung mass. He was admitted to [facility] on February 18 and underwent the procedure. The pathology report showed non-small cell lung cancer squamous cell carcinoma PD-L1 1% positive. The patient had multiple other studies. He stated that he had a PET scan and MRI. The results of those are not available. However, according to the patient, he was told that the cancer was just in the left upper lobe of the lung. He was referred to Dr. Funes, cardiovascular surgeon, for surgery. The patient is now admitted to the hospital on April 08 for surgery. He underwent a left thoracoscopic assisted excisional biopsy of the left upper lobe tumor and lysis of adhesions from previous coronary artery bypass surgery. According to the operative note, a large mass was encountered grossly invading the chest wall just posterior to the apex. Clips were used to tejas the area of concern. The nodule was excised. The pathology report showed invasive squamous cell carcinoma status post wedge resection. The size of the tumor was 5.2 cm. It was a single tumor that is moderate to poorly differentiated. The tumor spread through air spaces that present adjacent to the main tumor mass. Visceral pleural invasion noted as well. No lymphovascular invasion noted. No adjacent structures were present. All margins are negative, however, the tumor is 0.5 cm from the lung margin of resection. No lymph nodes submitted or found. He has been staged pT3, pNX. I have been asked to see the patient for further evaluation. The patient states that he did not have any cough or shortness of breath or weight loss or hemoptysis. This was an incidental finding noted on the chest x-ray when he went for routine exam. He is feeling much better after the surgery. He also noticed that since he has stopped smoking cigarettes, his breathing has improved. The rest of the review of systems is negative. PAST MEDICAL HISTORY 1. Coronary artery disease 2. Hypercholesterolemia 3. Peripheral vascular disease 4. COPD PAST SURGICAL HISTORY 1. Appendectomy 2. Vasectomy 3. Coronary artery bypass surgery ALLERGIES None MEDICATIONS 1. Simvastatin 2. Aspirin FAMILY HISTORY Father from pneumonia. Mother from old age. The patient had three brothers, two sisters, two daughters, one son all alive and well, none had any cancer. SOCIAL HISTORY The patient is . Used to smoke cigarettes one pack a day for 65 years, quit about a month ago, does not drink alcohol. 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 PHYSICAL EXAM This is a well-developed, well-nourished chronically ill-appearing white male in no apparent distress. VITAL SIGNS: Temperature 98.8, heart rate is 77, respiratory rate is 18, blood pressure 110/57. HEENT: PERRLA, EOMI, anicteric. No oral lesions are noted. NECK: No lymphadenopathy noted. LUNGS: Decreased breath sounds on both sides. HEART: Regular rate and rhythm. ABDOMEN: Soft and nontender. No hepatosplenomegaly. EXTREMITIES: No pedal edema. NEUROLOGIC: Awake, alert, oriented times. SKIN: No significant lesions are noted. ASSESSMENT Non-small cell lung cancer, poorly differentiated squamous cell carcinoma status post left upper lobe wedge resection. The pathology report showed pT3, pNX, M0 stage IIB. PLAN I have reviewed his available records and I had an extensive discussion with the patient regarding the diagnosis, treatment and prognosis of non-small cell lung cancer. I discussed with him that he has a very large left upper lobe lung mass of 5.3 cm. The visceral pleura is involved. Also, the operative findings showed that the tumor was attached to the chest wall. However, the parietal pleura was reported to be negative. None of the lymph nodes were sampled. The patient is at a high risk for recurrent metastatic disease. Without any further treatment, his five year survival is only 53%. Therefore my recommendation is for adjuvant chemotherapy cisplatin based most likely cisplatin plus Taxotere once every three weeks times four cycles followed by radiation therapy. The patient stated he is going to talk to his and the rest of the family. I advised him that we want to wait until the surgical wound has healed completely before we try chemotherapy. The patient lives in [place]. He would prefer to come to our [place] oncology center for further treatment and followup. Upon discharge, please give him an appointment to come see me at our [place] office for further discussion of his lung cancer treatment. I have recommended adjuvant chemotherapy cisplatin plus Taxotere once every three weeks times four cycles followed by radiation therapy. Thank you for asking my opinion. MD ELSA Kramer/ALVINA /6:51 PM /6:32 AM MARVIN
[2017-04-13] MEDS: POLYETHYLENE GLYCOL 17 GM PKG PO SCH (09:00)
[2017-04-13] MEDS: ASPIRIN 81 MG CHEW TAB CHEW SCH (09:00)
[2017-04-13] MEDS: DOCUSATE SODIUM 100 MG CAP PO SCH (09:00)
[2017-04-13] MEDS: SODIUM CHLORIDE 0.9% FLUSH 10 ML FLUSH IV FLUSH SCH (09:02)
--- NOTE | 2017-04-13 13:07 | PD.ONC.PN ---
Subjective Subjective Remarks Afebrile overnight. Patient resting in room. still having pain at his surgery site. still deciding whether or not he wants to have chemotherapy outpatient. Objective Data Date Time Temp Pulse Resp B/P (MAP) Pulse Ox O2 Delivery O2 Flow Rate FiO2 04/13/17 12:00 72 04/13/17 11:22 97.8 64 18 132/67 (88) 97 04/13/17 11:00 63 04/13/17 10:20 75 04/13/17 10:17 17 04/13/17 09:00 80 04/13/17 08:15 98.2 76 18 113/64 (80) 94 04/13/17 08:00 70 04/13/17 07:00 72 04/13/17 06:02 74 04/13/17 05:00 76 04/13/17 04:00 78 04/13/17 03:40 98.6 78 17 118/53 (74) 93 04/13/17 03:00 87 04/13/17 02:00 75 04/13/17 01:00 74 04/13/17 00:00 76 04/12/17 23:00 98.6 74 17 118/65 (82) 95 04/12/17 23:00 73 04/12/17 19:00 79 04/12/17 19:00 98.1 75 17 112/63 (79) 94 04/12/17 18:00 88 04/12/17 17:00 72 04/12/17 16:00 81 04/12/17 15:00 77 04/12/17 15:00 67 18 110/57 (74) 95 04/12/17 14:00 82 04/13/17 04/13/17 04/13/17 07:00 15:00 23:00 Intake Total 480 ml Output Total 500 ml Balance -20 ml Result Diagram: 04/10/17 0518 04/09/17 0426 Imaging Studies Last 24 hours Impressions Chest X-Ray 04/13/17 0600 Signed Impressions: Service Date/Time: Thursday, April 13, 2017 04:23 - CONCLUSION: 1. Chest tube with tiny left pneumothorax. Stable mild airspace disease on the left Erasto Balderas MD Administered Medications Medications (Trade) Dose Ordered Sig/Corey Route PRN Reason Start Time Stop Time Status Last Admin Dose Admin Albuterol Sulfate (Albuterol Neb) 2.5 mg Q2HR NEB PRN NEB WHEEZING 04/08/17 10:45 04/09/17 09:00 Sodium Chloride (NS Flush) 2 ml BID IV FLUSH 04/08/17 21:00 04/13/17 09:02 Pantoprazole Sodium (Protonix) 40 mg HS PO 04/08/17 21:00 04/12/17 19:58 Acetaminophen (Tylenol) 650 mg Q4H PRN PO TEMPERATURE > 101 F 04/08/17 10:45 04/09/17 06:37 Aspirin (Aspirin Chew) 81 mg DAILY CHEW 04/09/17 09:00 04/13/17 09:00 Atorvastatin Calcium (Lipitor) 40 mg HS PO 04/08/17 21:00 04/12/17 19:58 Docusate Sodium (Colace) 100 mg BID PO 04/09/17 10:00 04/13/17 09:00 Polyethylene Glycol (Miralax) 17 gm DAILY PO 04/09/17 10:00 04/13/17 09:00 Acetaminophen/ Hydrocodone Bitart ([place] 5-325 Mg) 2 tab Q4H PRN PO PAIN SCALE 6 TO 10 04/12/17 11:15 04/13/17 09:01 Objective Remarks GENERAL: Elderly male, sitting up in bed in [facility]. SKIN: Warm and dry. HEAD: Normocephalic. EYES: No injection or drainage. NECK: Supple, trachea midline. CARDIOVASCULAR: Regular rate and rhythm RESPIRATORY: diminished at left base, anterior meza clear. GASTROINTESTINAL: Abdomen soft, non-tender, nondistended. EXTREMITIES: No cyanosis NEUROLOGICAL: awake and alert, normal speech. Assessment/Plan Problem List: (1) Lung cancer ICD Codes: C34.90 - Malignant neoplasm of unspecified part of unspecified bronchus or lung Plan: 04/13: fs faxed to new patient referrals in [place]. follow up in oncology clinic once discharged. History: January 12, he had a CT scan of the chest which revealed a 3 cm left upper lobe lung mass. The patient was referred to build automation engineer Dr. Lopez. Dr. Lopez had recommended CT-guided core needle biopsy of the left upper lobe lung mass. He was admitted to [facility] on February 18 and underwent the procedure. The pathology report showed non-small cell lung cancer squamous cell carcinoma PD-L1 1% positive. PET scan and MRI results are not available. However, according to the patient, he was told that the cancer was just in the left upper lobe of the lung. underwent a left thoracoscopic assisted excisional biopsy of the left upper lobe tumor and lysis of adhesions from previous coronary artery bypass surgery. pathology report showed invasive squamous cell carcinoma status post wedge resection. The size of the tumor was 5.2 cm. It was a single tumor that is moderate to poorly differentiated. The tumor spread through air spaces that present adjacent to the main tumor mass. Visceral pleural invasion noted as well. No lymphovascular invasion noted. No adjacent structures were present. All margins are negative, however, the tumor is 0.5 cm from the lung margin of resection. No lymph nodes submitted or found. He has been staged pT3, pNX. patient is at a high risk for recurrent metastatic disease. Without any further treatment, his five year survival is only 53%. recommendation is for adjuvant chemotherapy cisplatin based--> most likely cisplatin plus Taxotere once every three weeks times four cycles followed by radiation therapy. we will want to wait until the surgical wound has healed completely before we try chemotherapy. Assessment 81y/o male with recently diagnosed non-small cell lung cancer. history of coronary artery disease status post coronary artery bypass surgery, hypercholesterolemia, peripheral vascular disease and COPD. Attending Statement The exam, history, and the medical decision-making described in the above note were completed with the assistance of the mid-level provider. I reviewed and agree with the findings presented. I attest that I had a [id number] encounter with the patient on the same day, and personally performed and documented my assessment and findings in the medical record. Anxious to go home. Recommend chemo and XRT as he is at high risk for relapse. FU outpt in [facility] office. Problem Qualifiers (1) Lung cancer: Qualified Codes: C34.12 - Malignant neoplasm of upper lobe, left bronchus or lung Diana Miramontes Apr 13, 2017 13:07 Ruth García MD Apr 13, 2017 23:05
[2017-04-13] MEDS ORDERED: HYDR-3516 PO (14:30)
[2017-04-13] MEDS ORDERED: DOCU1CAP39 PO (14:30)
--- NOTE | 2017-04-13 14:37 | RADRPT ---
EXAM DATE/TIME: 04/13/2017 13:08 [facility] COMPARISON: CHEST SINGLE AP, April 13, 2017, 4:23. INDICATIONS : Post chest tube removal. MEDICAL HISTORY : Chronic obstructive pulmonary disease. Cardiovascular disease. Peripheral vascular disease. SURGICAL HISTORY : Appendectomy. CABG ENCOUNTER: Subsequent ACUITY: 4 - 6 days PAIN SCORE: 3/10 LOCATION: Left chest FINDINGS: A single view of the chest demonstrates previous median sternotomy. Pleural-parenchymal density in th e left hemithorax appears unchanged. Slight mild loss left chest again seen. Left-sided chest tube re moved. No definite pneumothorax. Subcutaneous emphysema in the left. Osseous structures are intact. CONCLUSION: Pleural-parenchymal density/airspace disease in the left chest is stable. No pneumothorax status post chest tube removal. Jose Luis Yo MD on April 13, 2017 at 14:32 Board Certified Radiologist. This report was verified electronically.
--- NOTE | 2017-04-13 14:42 | HHI.DS ---
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 SEE TUMOR SYNOPSIS. TUMOR SYNOPSIS PROCEDURE: WEDGE RESECTION. SPECIMEN LATERALITY: LEFT. TUMOR SITE: UPPER LOBE. TUMOR SIZE: 5.2 X 4.5 X 4.0 CM. TUMOR FOCALITY: SINGLE TUMOR. HISTOLOGIC TYPE: SQUAMOUS CELL CARCINOMA. HISTOLOGIC GRADE: GRADE 2-3, MODERATELY TO POORLY DIFFERENTIATED. SPREAD THROUGH AIR SPACES: PRESENT ADJACENT TO MAIN TUMOR MASS. VISCERAL PLEURAL INVASION: PRESENT. LYMPH-VASCULAR INVASION: NOT IDENTIFIED. DIRECT INVASION OF ADJACENT STRUCTURES: NO ADJACENT STRUCTURES PRESENT. MARGINS: ALL MARGINS UNINVOLVED BY INVASIVE CARCINOMA. THE TUMOR IS 0.5 CM FROM THE LUNG MARGIN OF RESECTION. TREATMENT EFFECT: NO KNOWN PRESURGICAL THERAPY. REGIONAL LYMPH NODES: NO LYMPH NODES SUBMITTED OR FOUND. PATHOLOGIC STAGE CLASSIFICATION (pTNM, AJCC 8th Edition): pT3, pNX. Imaging Last Impressions Chest X-Ray 04/13/17 0600 Signed Impressions: Service Date/Time: Thursday, April 13, 2017 04:23 - CONCLUSION: 1. Chest tube with tiny left pneumothorax. Stable mild airspace disease on the left Erasto Balderas MD PE at Discharge GENERAL: A&O x 3 SKIN: Warm and dry. HEAD: Normocephalic. EYES: No scleral icterus. No injection or drainage. NECK: Supple, trachea midline. No JVD or lymphadenopathy. CARDIOVASCULAR: Regular rate and rhythm without murmurs, gallops, or rubs. RESPIRATORY: diminished left base chest tube removed without difficulty Breath sounds equal bilaterally. No accessory muscle use. GASTROINTESTINAL: Abdomen soft, non-tender, nondistended. MUSCULOSKELETAL: No cyanosis, or edema. BACK: Nontender without obvious deformity. No CVA tenderness. Hospital Course surgery: 04/08 Left thoracoscopic assisted excisional biopsy of left upper lobe tumor Lysis of adhesions + 3-4+ air leak post op 04/09 on room air + 3 continuous air leak , no sub q air pain controlled on MS INSERT CUTTER GI motility meds added 04/10/17 small air leak resting comfortably currently 04/11/17 c/o incisional pain small air leak 04/12 cxr with small ptx, will f/u in am / + air leak leave to water seal + BM OOB ambulating well will dc INSERT CUTTER, use po pain meds 04/13 chest tube removed without difficulty post CXR pending results, if no change and only tiny PTX, then dc home with f/u CXR in 2 weeks path LEFT UPPER LOBE MASS, WEDGE RESECTION: INVASIVE SQUAMOUS CELL CARCINOMA. SEE TUMOR SYNOPSIS. TUMOR SYNOPSIS HISTOLOGIC TYPE: SQUAMOUS CELL CARCINOMA. HISTOLOGIC GRADE: GRADE 2-3, MODERATELY TO POORLY DIFFERENTIATED. SPREAD THROUGH AIR SPACES: PRESENT ADJACENT TO MAIN TUMOR MASS. VISCERAL PLEURAL INVASION: PRESENT. LYMPH-VASCULAR INVASION: NOT IDENTIFIED. DIRECT INVASION OF ADJACENT STRUCTURES: NO ADJACENT STRUCTURES PRESENT. MARGINS: ALL MARGINS UNINVOLVED BY INVASIVE CARCINOMA. THE TUMOR IS 0.5 CM FROM THE LUNG MARGIN OF RESECTION. TREATMENT EFFECT: NO KNOWN PRESURGICAL THERAPY. REGIONAL LYMPH NODES: NO LYMPH NODES SUBMITTED OR FOUND. PATHOLOGIC STAGE CLASSIFICATION (pTNM, AJCC 8th Edition): pT3, pNX. has f/u appointment with Dr García Pt Condition on Discharge: Good Discharge Disposition: Disch w/ Home Health Serv Discharge Instructions DIET: Follow Instructions for: As Tolerated, No Restrictions Activities you can perform: Full Weight Bearing, Shower Only-No Bath Activities to avoid: Strenuous Activity, Driving Additional Activity Instructio: no lifting > 10 lbs or gallon of milk Follow up Referrals: Appointment for Follow Up - 3 Weeks with Ruth García MD Cardiology - 4 Weeks with Maurilio Lopez MD PCP Follow-up - 2 Weeks with Jatin Gardner M.d. Surgical - 2 Weeks with Jerilyn Smith New Orders: X-RAY CHEST PA & LAT - 2 Weeks New Medications: Docusate Sodium (Dok) 100 Mg Cap 100 MG PO BID for Constipation, #60 CAP 0 Refills Hydrocodone/Acetaminophen (Hydrocodone-Acetamin 5-325 mg) 5 Mg-325 Mg Tablet 1 TAB PO Q4H PRN for PAIN SCALE 1 TO 5, #30 TAB 0 Refills Continued Medications: Aspirin (Aspirin Low Dose) 81 Mg Chew 81 MG CHEW DAILY, TAB 0 Refills Atorvastatin (Atorvastatin) 40 Mg Tab 40 MG PO HS for Cholesterol Management, #30 TAB 0 Refills Jerilyn Smith Apr 13, 2017 14:42
== END 2017-04-13 16:00 | disposition home health service (06) | DRG 167 ==
LOC: HSDI 05:17 → HCPC 19:45
PROVIDERS: ADMIT Thoracic Surgery (Cardiothoracic Vascular Surgery); ATTEND Thoracic Surgery (Cardiothoracic Vascular Surgery)
PROC: 0BBG4ZX Excision of Left Upper Lung Lobe, Percutaneous Endoscopic Approach, Diagnostic (ICD-10-PCS; principal; 2017-04-08 07:30)
DX: C34.12 Malignant neoplasm of upper lobe, left bronchus or lung (principal); J95.811 Postprocedural pneumothorax; J44.9 Chronic obstructive pulmonary disease, unspecified; I10 Essential (primary) hypertension; I25.10 Atherosclerotic heart disease of native coronary artery without angina pectoris; E78.00 Pure hypercholesterolemia, unspecified; I73.9 Peripheral vascular disease, unspecified; Y84.8 Other medical procedures as the cause of abnormal reaction of the patient, or of later complication, without mention of misadventure at the time of the procedure; Z87.891 Personal history of nicotine dependence; Z95.1 Presence of aortocoronary bypass graft; I25.2 Old myocardial infarction; Z85.828 Personal history of other malignant neoplasm of skin
CPT/HCPCS: 71045; 80048; 85025; 85027; 86850; 86900; 86901; 86920; 88307; 94150; 94664; C9290; J0131; J0690; J1100; J1170; J2250; J2270; J2370; J2405; J2710; J3010; J7120; J7613